=== PATIENT | female | born 1960 | race Caucasian/White ===

== ENCOUNTER 2022-04-23 08:12 | Emergency (ER) | payer MEDICARE ==
[~2022-04-23] VITALS: Ht 160 cm; Wt 74.8 kg
[2022-04-23] MEDS ORDERED: PERCOCET 10-321 EAC7 PO (09:18)
== END 2022-04-23 09:23 | disposition home or self-care (01) ==
LOC: ER 08:12
DX: F11.23 Opioid dependence with withdrawal (principal); M54.50 Low back pain, unspecified; G89.29 Other chronic pain
CPT/HCPCS: 99283

== ENCOUNTER 2023-07-16 17:00 | Emergency (ER) | payer MEDICARE ==
[~2023-07-16] VITALS: Ht 167.6 cm; Wt 95.2 kg
[~2023-07-16 17:00] MED LIST: PERCOCET 10-321 EAC7 PO
[2023-07-16 17:30] LABS: BASOPHILS ABSOLUTE AUTO 0.04 K/mm3 (0.00-0.23); BASOPHILS PERCENT AUTO 1 % (0-2); EOSINOPHILS ABSOLUTE AUTO 0.19 K/mm3 (0.00-0.68); EOSINOPHILS PERCENT AUTO 3 % (0-6); Hematocrit 40.7 % (33.0-51.0); Hemoglobin 13.8 g/dL (11.5-16.0); IMMATURE GRAN ABSOLUTE AUTO 0.01 K/mm3 (0.00-0.10); IMMATURE GRAN PERCENT AUTO 0 % (0-1); LYMPHOCYTES ABSOLUTE AUTO 2.28 K/mm3 (0.84-5.20); LYMPHOCYTES PERCENT AUTO 40 % (21-46); MONOCYTES ABSOLUTE AUTO 0.45 K/mm3 (0.16-1.47); MONOCYTES PERCENT AUTO 8 % (4-13); Mean Corpuscular HGB 32.1 pg (26.0-34.0); Mean Corpuscular HGB Conc 33.9 g/dL (31.5-36.5); Mean Corpuscular Volume 95 fL (80-100); Mean Platelet Volume 9.3 fL (9.1-12.4); NEUTROPHILS PERCENT AUTO 49 % (41-73); Platelet Count 284 K/mm3 (150-400); RDW Coefficient Variation 14.1 % (11.7-14.2); RDW Standard Deviation 49.3 fL (35.1-46.3); White Blood Cell Count 5.77 K/mm3 (4.00-11.30)
[2023-07-16 17:51] LABS: Albumin, Blood 3.5 g/dL (3.4-5.0); Albumin/Globulin Ratio 1.2 (0.8-1.8); Bilirubin, Total 0.2 mg/dL (0.1-1.0); Bun/Creatinine Ratio 12.5 (12.0-20.0); Calcium, Blood 8.8 mg/dL (8.5-10.1); Creatinine, Blood 1.2 mg/dL (0.40-1.00); Total Protein, Blood 6.5 g/dL (6.4-8.2)
[2023-07-16] MEDS ORDERED: LOPE2C PO (20:56)
[2023-07-16 21:00] VITALS: BP 116/79
[2023-07-17] MEDS ORDERED: LAMICTAL200 MG PO (09:22)
[2023-07-17] MEDS ORDERED: ATOR10 PO (09:22)
[2023-07-17] MEDS ORDERED: CYMBALTA30 M2 PO (09:22)
[2023-07-17] MEDS ORDERED: FLUT.05NI (09:22)
[2023-07-17] MEDS ORDERED: OXYC10TA19 PO (09:23)
[2023-07-17] MEDS ORDERED: TAMSULOSIN HCL0.4 M1 PO (09:23)
[2023-07-17] MEDS ORDERED: DRAMAMINE25 M3 PO (09:23)
== END 2023-07-16 21:03 | disposition home or self-care (01) ==
LOC: ER 17:00
PROVIDERS: Physician Assistant
DX: R55 Syncope and collapse (principal); R19.7 Diarrhea, unspecified; Z88.0 Allergy status to penicillin; J45.909 Unspecified asthma, uncomplicated; Z79.899 Other long term (current) drug therapy
CPT/HCPCS: 71046; 80053; 84484; 85025; 93005; 93010; 99285-25

== ENCOUNTER 2023-07-17 09:05 | Emergency (ER) | payer MEDICARE ==
[~2023-07-17] VITALS: Ht 167.6 cm; Wt 95.2 kg
[~2023-07-17 09:05] MED LIST changes: +LOPE2C PO
[2023-07-17] MEDS ORDERED: CYMBALTA30 M2 PO (09:22)
[2023-07-17] MEDS ORDERED: LAMICTAL200 MG PO (09:22)
[2023-07-17] MEDS ORDERED: ATOR10 PO (09:22)
[2023-07-17] MEDS ORDERED: FLUT.05NI (09:22)
[2023-07-17 09:23] LABS: BASOPHILS ABSOLUTE AUTO 0.03 K/mm3 (0.00-0.23); BASOPHILS PERCENT AUTO 1 % (0-2); EOSINOPHILS ABSOLUTE AUTO 0.13 K/mm3 (0.00-0.68); EOSINOPHILS PERCENT AUTO 3 % (0-6); Hematocrit 38.2 % (33.0-51.0); IMMATURE GRAN ABSOLUTE AUTO 0.02 K/mm3 (0.00-0.10); IMMATURE GRAN PERCENT AUTO 0 % (0-1); LYMPHOCYTES ABSOLUTE AUTO 1.48 K/mm3 (0.84-5.20); LYMPHOCYTES PERCENT AUTO 29 % (21-46); MONOCYTES ABSOLUTE AUTO 0.41 K/mm3 (0.16-1.47); MONOCYTES PERCENT AUTO 8 % (4-13); Mean Corpuscular HGB 32.4 pg (26.0-34.0); Mean Corpuscular Volume 95 fL (80-100); Mean Platelet Volume 9.2 fL (9.1-12.4); NEUTROPHILS ABSOLUTE AUTO 3.09 K/mm3 (1.96-9.15); NEUTROPHILS PERCENT AUTO 60 % (41-73); Platelet Count 252 K/mm3 (150-400); RDW Coefficient Variation 14.1 % (11.7-14.2); RDW Standard Deviation 49.9 fL (35.1-46.3); Red Blood Cell Count 4.01 M/mm3 (3.80-5.20); White Blood Cell Count 5.16 K/mm3 (4.00-11.30)
[2023-07-17] MEDS ORDERED: DRAMAMINE25 M3 PO (09:23)
[2023-07-17] MEDS ORDERED: OXYC10TA19 PO (09:23)
[2023-07-17] MEDS ORDERED: TAMSULOSIN HCL0.4 M1 PO (09:23)
[2023-07-17 09:40] LABS: Albumin, Blood 3.1 g/dL (3.4-5.0); Albumin/Globulin Ratio 1.1 (0.8-1.8); Bilirubin, Total 0.4 mg/dL (0.1-1.0); Bun/Creatinine Ratio 11.6 (12.0-20.0); Calcium, Blood 7.8 mg/dL (8.5-10.1); Creatinine, Blood 1.38 mg/dL (0.40-1.00); Globulin, Blood 2.9 g/dL (2.2-4.0); Potassium, Blood 4.3 mmol/L (3.5-5.5)
[2023-07-17 10:01] LABS: Source, Urine Fem Cath
[2023-07-17 10:06] LABS: Appearance, Urine Clear (Clear); Bilirubin, Urine Neg (Neg); Blood, Urine Neg (Neg); Color, Urine Yellow (P-Yellow); Glucose Qualitative, Urine Neg (Neg); Ketones, Urine Neg (Neg); Leukocyte Esterase, Urine Neg (Neg); Nitrite, Urine Neg (Neg); Protein, Urine 1+ (Neg); Specific Gravity, Urine 1.025 (1.003-1.022); Urobilinogen, Urine NORM (Normal)
[2023-07-17 10:51] VITALS: BP 123/54
== END 2023-07-17 10:49 | disposition home or self-care (01) ==
LOC: ER 09:05
PROVIDERS: Emergency Medicine
DX: R53.1 Weakness (principal); R53.81 Other malaise; Z88.0 Allergy status to penicillin; Z79.899 Other long term (current) drug therapy; J45.909 Unspecified asthma, uncomplicated
CPT/HCPCS: 80053; 84484; 85025; 93005; 93010; 99284-25; J7030; P9612

== ENCOUNTER 2023-09-08 14:24 | Emergency (ER) | payer MEDICARE ==
[~2023-09-08] VITALS: Ht 167.6 cm; Wt 95.2 kg
[~2023-09-08 14:24] MED LIST changes: +ATOR10 PO; +CYMBALTA30 M2 PO; +DRAMAMINE25 M3 PO; +FLUT.05NI; +LAMICTAL200 MG PO; +OXYC10TA19 PO; +TAMSULOSIN HCL0.4 M1 PO
[2023-09-08 14:50] VITALS: BP 112/83
== END 2023-09-08 14:56 | disposition home or self-care (01) ==
LOC: ER 14:24
DX: I95.9 Hypotension, unspecified (principal); I10 Essential (primary) hypertension; Z88.0 Allergy status to penicillin
CPT/HCPCS: 99283

== ENCOUNTER 2023-09-30 16:08 | Emergency (ER) | payer MEDICARE ==
[~2023-09-30] VITALS: Ht 167.6 cm; Wt 95.2 kg
[2023-09-30 16:47] LABS: BASOPHILS ABSOLUTE AUTO 0.02 K/mm3 (0.00-0.23); BASOPHILS PERCENT AUTO 0 % (0-2); EOSINOPHILS PERCENT AUTO 1 % (0-6); Hematocrit 36.4 % (33.0-51.0); Hemoglobin 12.2 g/dL (11.5-16.0); IMMATURE GRAN ABSOLUTE AUTO 0.02 K/mm3 (0.00-0.10); IMMATURE GRAN PERCENT AUTO 0 % (0-1); LYMPHOCYTES ABSOLUTE AUTO 1.04 K/mm3 (0.84-5.20); LYMPHOCYTES PERCENT AUTO 15 % (21-46); MONOCYTES ABSOLUTE AUTO 0.45 K/mm3 (0.16-1.47); MONOCYTES PERCENT AUTO 6 % (4-13); Mean Corpuscular HGB 32.5 pg (26.0-34.0); Mean Corpuscular HGB Conc 33.5 g/dL (31.5-36.5); Mean Corpuscular Volume 97 fL (80-100); Mean Platelet Volume 9.3 fL (9.1-12.4); NEUTROPHILS ABSOLUTE AUTO 5.54 K/mm3 (1.96-9.15); NEUTROPHILS PERCENT AUTO 77 % (41-73); Platelet Count 268 K/mm3 (150-400); RDW Coefficient Variation 14.1 % (11.7-14.2); RDW Standard Deviation 49.5 fL (35.1-46.3); Red Blood Cell Count 3.75 M/mm3 (3.80-5.20); White Blood Cell Count 7.17 K/mm3 (4.00-11.30)
[2023-09-30 17:06] LABS: Albumin, Blood 3.2 g/dL (3.4-5.0); Albumin/Globulin Ratio 0.9 (0.8-1.8); Bilirubin, Total 0.3 mg/dL (0.1-1.0); Bun/Creatinine Ratio 19.7 (12.0-20.0); Calcium, Blood 8.2 mg/dL (8.5-10.1); Creatinine, Blood 0.71 mg/dL (0.40-1.00); Globulin, Blood 3.4 g/dL (2.2-4.0); Magnesium, Blood 1.6 mg/dL (1.6-2.4); Potassium, Blood 4.1 mmol/L (3.5-5.5); Total Protein, Blood 6.6 g/dL (6.4-8.2)
[2023-09-30] MEDS ORDERED: Prinivil10 MG PO (17:35)
[2023-09-30 17:47] VITALS: BP 173/88
== END 2023-09-30 18:00 | disposition home or self-care (01) ==
LOC: ER 16:08
PROVIDERS: Physician Assistant
DX: I10 Essential (primary) hypertension (principal); R42 Dizziness and giddiness; R05.9 Cough, unspecified; J45.909 Unspecified asthma, uncomplicated; Z88.0 Allergy status to penicillin; Z79.899 Other long term (current) drug therapy
CPT/HCPCS: 71046; 80053; 83735; 85025; 99284-25; A9270